=== PATIENT | male | born 1955 | race Caucasian/White ===

== ENCOUNTER 2017-12-26 19:05 | Emergency (ER) | payer MEDICARE, SELFPAY ==
[2017-12-26 19:07] VITALS: BP 137/83; PULSE 77; RESP 20; TEMP 36.4; O2SAT 95; BMI 39.6
--- NOTE | 2017-12-26 19:55 | ED.RN ---
per patient he knows he takes iron and is suppose to 2xd. does not remember any other medication he takes. pharmacy in [place]. no longer open.
--- NOTE | 2017-12-26 21:35 | RAD_ITS ---
STUDY: X-RAY CHEST REASON FOR EXAM: Male, 62 years old. Productive cough x1 week TECHNIQUE: PA and lateral views of the chest. COMPARISON: None. FINDINGS: library monitor leads are present. There is ill-defined infiltrate of the right lower lobe. There is no demonstrated pleural abnormality. Normal size heart. Normal mediastinum and dillon. Normal visualized pulmonary arteries. Normal visualized aortic arch and descending thoracic aorta. Normal visualized thoracic spine. Normal visualized ribs, clavicles, and shoulders. There is no demonstrated abnormality of the visualized soft tissue structures of the upper abdomen. RAD/Chest PA and Lateral IMPRESSION: Ill-defined right lower lobe infiltrate. Follow-up chest x-ray is recommended to assess for resolution. Electronically Signed: Ambrosio Marquez MD at 22:18 EDT , Service support ,
[2017-12-26 21:45] LABS: Absolute Lymphocyte Count 1.49 X10^3/ul (0.83-4.51); Absolute Neutrophil Count 3.1 X10^3/uL (2.0-7.7); Basophil# 0.01 X10^3/uL; Basophil% 0.2 % (0-1); Eosinophil# 0.05 X10^3/uL; Hematocrit 39.7 % (40-54); Hemoglobin 13.7 g/dl (13.0-16.5); Lymphocyte # 1.49 X10^3/ul (4.0); Lymphocyte % 30.3 % (19-41); Mean Corp Hgb Conc 34.5 g/gl (32-36); Mean Corpuscular Hgb 30.4 pg (27.0-32.0); Mean Platelet Vol. 9.1 fl (6.2-12.0); Monocyte# 0.22 X10^3/uL; Monocyte% 4.5 % (0-10); Neutrophil # 3.13 X10^3/uL (2.7-7.7); Neutrophil % 63.8 % (47-70); Platelet Count 304 K/mm3 (150-450); RBC Distribution Width CV 13.7 % (11.6-14.6); RBC Distribution Width SD 44.3 fl (35.1-43.9); Red Blood Count 4.51 M/mm3 (4.6-6.2); White Blood Count 4.9 K/mm3 (4.4-11.0)
[2017-12-26 21:46] LABS: Differential Indicated SCAN CRITERIA MET; POSITIVE COUNT YES; POSITIVE DIFFERENTIAL NO; POSITIVE MORPHOLOGY NO
[2017-12-26 22:05] LABS: Differential Comment SCANNED
[2017-12-26 22:18] VITALS: PULSE 64; RESP 20
[2017-12-26 22:41] LABS: Anion Gap 5 (5-15); BUN 8 mg/dL (7-18); BUN/Creat Ratio 10.3 RATIO (10-20); Chloride 97 mmol/L (98-107); Creatinine, Serum 0.78 mg/dL (0.70-1.30); EST Glomerular Filtration Rate 108 mL/min (>60); Est Glom Filt Rate - Afr Amer 131 mL/min (>60); Estimated Creatinine Clearance 97.44 ml/min; Glucose 83 mg/dL (74-106); Potassium 4.3 mmol/L (3.5-5.1); Sodium Level 127 mmol/L (136-145)
--- NOTE | 2017-12-26 23:15 | ED.VISSUMM ---
- ER Visit Summary Date of Service: 12/26/17 Chief Complaint: Fever, productive cough of green colored sputum and black stool History of Present Illness: The patient is a 62 M who is a poor informant. He states he has history of COPD. He is a smoker of 2 packs per day. Per old records he has history of IV drug use and alcohol use. He was not forthcoming with the alcohol or heroin use. He denies headache, photophobia, neck pain or neck stiffness. He denies change in vision, blurred vision or double vision. He denies chest pain, palpitations or racing heart rate. He does complain of shortness of breath, productive cough. He denies orthopnea PND. GI is positive only for black stool. He states he is on iron. He has no urologic symptoms. He denies myalgias arthralgias or back pain. He denies rash. He denies polyuria, polydipsia polyphagia. He denies bruising easily. Denies urticaria or angioedema. Physical Examination: Vital signs remarkable blood pressure 137/83. Head is atraumatic normocephalic. Pupils are equal round reactive. Extraocular muscles are intact. TMs are pearly white with landmarks noted. Nares patent with no drainage. Posterior pharynx without erythema or exudate. Uvula is midline. There is no dysphonia or dysphasia. Trachea is midline. There is no stridor with auscultation of the neck. Heart is regular without murmur, gallop or rub. S1 and S2 are normal. Lungs are clear to auscultation with good movement of air bilaterally. Abdomen is soft and nontender. There is no guarding or peritoneal findings. There is no palpable pulsatile mass. There is no abdominal bruit. Guidry sign is negative. Negative Rovsing sign. There is no evidence of inguinal or umbilical hernia. Material on digital rectal exam was not black. Neuro exam is nonfocal. Test Results: CBC is normal. Electro panel is remarkable for sodium of 127 chloride 97. Chest x-ray reveals a small infiltrate right lower lobe. Emergency Department Course and Treatment: Because patient is to pack per day smoker complaining of colored sputum with fever and chills chest x-ray was obtained and reveals a pneumonia. CBC was obtained because of black stool as well as BMP looking for an elevated BUN/creatinine ratio. Stool was sent for Hemoccult and negative. Treatment Plan: Levofloxacin 500 mg for community acquired right lower lobe pneumonia Disposition: Discharged to home follow-up at the [facility] Impression: 1. Community acquired right lower lobe pneumonia 2. Hyponatremia 3. Tobacco abuse 4. History of alcoholism 5. History of opiate drug abuse This note was generated with [employer] dictation software. It may contain incorrect words, spelling, and punctuation that were not noted in review of the chart prior to signing ED Disposition - Plan for ED Patient: Disposition: Home or Assisted Living Chief Complaint: General Illness Instructions: ED Hyponatremia, ED Pneumonia Adult Prescriptions: Levofloxacin [Levaquin] 500 mg PO DAILY #6 tab Referrals: Care Physician,No Primary [Primary Care Provider] - Additional Instructions: If there is no improvement in 3-5 days follow-up with your doctor at the [facility]. It is in your best interest to stop smoking.
--- NOTE | 2017-12-26 23:19 | ED.DCSUM_ITS ---
- ER Visit Summary Date of Service: 12/26/17 Chief Complaint: Fever, productive cough of green colored sputum and black stool History of Present Illness: The patient is a 62 M who is a poor informant. He states he has history of COPD. He is a smoker of 2 packs per day. Per old records he has history of IV drug use and alcohol use. He was not forthcoming with the alcohol or heroin use. He denies headache, photophobia, neck pain or neck stiffness. He denies change in vision, blurred vision or double vision. He denies chest pain, palpitations or racing heart rate. He does complain of shortness of breath, productive cough. He denies orthopnea PND. GI is positive only for black stool. He states he is on iron. He has no urologic symptoms. He denies myalgias arthralgias or back pain. He denies rash. He denies polyuria, polydipsia polyphagia. He denies bruising easily. Denies urticaria or angioedema. Physical Examination: Vital signs remarkable blood pressure 137/83. Head is atraumatic normocephalic. Pupils are equal round reactive. Extraocular muscles are intact. TMs are pearly white with landmarks noted. Nares patent with no drainage. Posterior pharynx without erythema or exudate. Uvula is midline. There is no dysphonia or dysphasia. Trachea is midline. There is no stridor with auscultation of the neck. Heart is regular without murmur, gallop or rub. S1 and S2 are normal. Lungs are clear to auscultation with good movement of air bilaterally. Abdomen is soft and nontender. There is no guarding or peritoneal findings. There is no palpable pulsatile mass. There is no abdominal bruit. Guidry sign is negative. Negative Rovsing sign. There is no evidence of inguinal or umbilical hernia. Material on digital rectal exam was not black. Neuro exam is nonfocal. Test Results: CBC is normal. Electro panel is remarkable for sodium of 127 chloride 97. Chest x-ray reveals a small infiltrate right lower lobe. Emergency Department Course and Treatment: Because patient is to pack per day smoker complaining of colored sputum with fever and chills chest x-ray was obtained and reveals a pneumonia. CBC was obtained because of black stool as well as BMP looking for an elevated BUN/creatinine ratio. Stool was sent for Hemoccult and negative. Treatment Plan: Levofloxacin 500 mg for community acquired right lower lobe pneumonia Disposition: Discharged to home follow-up at the [facility] at [facility] Impression: 1. Community acquired right lower lobe pneumonia 2. Hyponatremia 3. Tobacco abuse 4. History of alcoholism 5. History of opiate drug abuse This note was generated with [employer] dictation software. It may contain incorrect words, spelling, and punctuation that were not noted in review of the chart prior to signing ED Disposition - Plan for ED Patient: Disposition: Home or Assisted Living Chief Complaint: General Illness Instructions: ED Hyponatremia, ED Pneumonia Adult Prescriptions: Levofloxacin [Levaquin] 500 mg PO DAILY #6 tab Referrals: Care Physician,No Primary [Primary Care Provider] - Additional Instructions: If there is no improvement in 3-5 days follow-up with your doctor at the [facility] at [facility]. It is in your best interest to stop smoking.
[2017-12-26] MEDS: levoFLOXacin 750 MG Tablet PO (23:26)
[2017-12-26 23:27] VITALS: PULSE 65; RESP 18
== END 2017-12-26 23:27 | disposition home or self-care (01) ==
PROVIDERS: Emergency Provider Emergency Medicine
DX: J18.1 Lobar pneumonia, unspecified organism (principal); E87.1 Hypo-osmolality and hyponatremia; F17.200 Nicotine dependence, unspecified, uncomplicated; F10.20 Alcohol dependence, uncomplicated; F11.10 Opioid abuse, uncomplicated; J44.9 Chronic obstructive pulmonary disease, unspecified; K92.1 Melena; E66.9 Obesity, unspecified
CPT/HCPCS: 71046; 80048; 82274; 85025; 99284; A4216